=== PATIENT | male | born 1990 | race Caucasian/White ===

== ENCOUNTER 2024-11-06 19:10 | Emergency (ER) | payer BC ==
[2024-11-06] MEDS: Bacitracin Oint 1 GM U/D Packet TOP ONE (20:07)
[2024-11-06] MEDS: Diphtheria,Pertussis(Acell),Tetanus Vaccine 0.5 ML Syringe IM ONE (20:08)
== END 2024-11-06 20:21 | disposition home or self-care (01) ==
LOC: MW.ED 19:10
DX: S61.216A Laceration without foreign body of right little finger without damage to nail, initial encounter (principal); Z23 Encounter for immunization; W26.0XXA Contact with knife, initial encounter
CPT/HCPCS: 12001; 90471; 90715; 99282; A9270; J2003; 99283